=== PATIENT | male | born 1960 | race Caucasian/White ===

== ENCOUNTER 2024-07-07 10:15 | Emergency (ER) | payer BC, SELFPAY ==
[2024-07-07 10:26] VITALS: BMI 28.0
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
[2024-07-07 11:08] LABS: % Basophils 0.3 % (0-2); % Eosinophils 0.7 % (0-6); % Immature Granulocytes 0.3 % (0-0.5); % Lymphocytes 14.3 % (20.5-51.1); % Neutrophils 76.4 % (42.2-75.2); Absolute Eosinophils 0.1 10^3/uL (0-0.7); Absolute Lymphocytes 1.3 10^3/uL (1.2-3.4); Absolute Monocytes 0.8 10^3/uL (0.1-0.6); Absolute Neutrophils 7.1 10^3/uL (1.4-6.5); Hematocrit 41.5 % (39.0-52.0); Hemoglobin 14.8 g/dL (13.0-18.0); Mean Corp Hgb Conc. 35.7 g/dL (33.0-37.0); Mean Corpuscular Hgb 30.3 pg (27.0-31.0); Mean Corpuscular Volume 84.9 fL (80.0-94.0); Mean Platelet Volume 9.7 fL (7.4-10.4); Nucleated Red Blood Cells % 0 % (-); Platelet Count 299 10^3/uL (130-400); Red Blood Cell Count 4.89 10^6/uL (4.70-6.10); Red Cell Dist. Width 12.3 % (11.5-14.5); White Blood Cell Count 9.4 10^3/uL (4.8-10.8)
[2024-07-07 11:15] LABS: ALT (SGPT) 25 U/L (0-50); AST (SGOT) 24 U/L (17-59); Acetaminophen < 10 ug/ml (10-30); Albumin 3.9 g/dl (3.5-5.0); Alkaline Phosphatase 66 U/L (38-126); Blood Urea Nitrogen 12 mg/dl (9-20); Calcium 9.1 mg/dl (8.4-10.2); Carbon Dioxide 24 mmol/L (22-30); Chloride 107 mmol/L (98-107); Estimated Creatinine Clearance 65 ml/min; Glucose 116 mg/dl (70-99); Potassium 3.5 mmol/L (3.5-5.1); Salicylate < 1.0 mg/dl (2.0-20.0); Sodium 139 mmol/L (135-145); Total Protein 6.5 g/dl (6.3-8.2); eGFR > 60.00
[2024-07-07 11:16] LABS: Alcohol None Detected
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
[2024-07-07 14:47] VITALS: BP 165/98
[2024-07-07] MEDS: ATIVAN 1 MG PO (14:48)
[2024-07-07] MEDS: HALDOL 5 MG PO (14:48)
[2024-07-07 16:03] VITALS: BP 156/83
== END 2024-07-07 19:00 ==
LOC: EMR 10:15
PROVIDERS: CONSULT PHYSICIAN Psychiatry & Neurology Psychiatry; EMERGENCY PHYSICIAN Emergency Medicine; FAMILY PHYSICIAN Family Medicine
DX: F20.9 Schizophrenia, unspecified (principal); I10 Essential (primary) hypertension; I45.10 Unspecified right bundle-branch block
CPT/HCPCS: 99285; 80053; 80143; 80179; 82077; 85025; 93005; 99284